=== PATIENT | male | born 1955 | race Two or more races ===

== ENCOUNTER 2016-10-04 08:07 | Emergency (ER) | payer OTHER ==
[~2016-10-04] VITALS: Ht 165.1 cm; Wt 79.4 kg
[2016-10-04 09:46] VITALS: BP 152/84
== END 2016-10-04 09:25 | disposition home or self-care (01) ==
LOC: ED 08:07
DX: K64.5 Perianal venous thrombosis (principal); I10 Essential (primary) hypertension